=== PATIENT | male | born 1960 | race Caucasian/White ===

== ENCOUNTER 2020-02-16 22:42 | Emergency (ER) | payer BC ==
--- NOTE | 2020-02-16 23:20 | EDM.PDOC ---
ED HPI GENERAL MEDICAL PROBLEM - General Chief Complaint: Neuro Symptoms/Deficits Stated Complaint: STROKE Time Seen by Provider: 02/16/20 23:14 Source of Information: Reports: Patient History Limitations: Reports: No Limitations - History of Present Illness INITIAL COMMENTS - FREE TEXT/NARRATIVE: Ellis is a 59 yo male with numbness of the left side on and off x 3 weeks.He describes spells where he feels light headed,and clumsy. The left side feels heavy,and numb,and his left side of the face as well. He denies speech difficulty or swallowing problems. The last episode was tonight at 8 pm. He has a h/o high cholesterol,and DM,and tobacco abuse. No Headache, chest pain,or SOB - Related Data Allergies Allergy/AdvReac Type Severity Reaction Status Date / Time No Known Allergies Allergy Verified 02/16/20 22:47 ED ROS GENERAL - Review of Systems Review Of Systems: Comprehensive ROS is negative, except as noted in HPI. ED EXAM, NEURO - Physical Exam Exam: See Below Exam Limited By: No Limitations General Appearance: Alert, WD/WN, Anxious Ears: Normal External Exam Nose: Normal Inspection Throat/Mouth: Normal Inspection Head Exam: Atraumatic Neck: Normal Inspection Respiratory/Chest: No Respiratory Distress Cardiovascular: Normal Peripheral Pulses Neurological: Alert, Normal Mood/Affect, Normal Dorsiflexion, Oriented x 3 Extremities: Normal Inspection Psychiatric: Normal Affect #1 Interpretation EKG Date: 02/16/20 Rhythm: NSR Course - Vital Signs Last Recorded V/S: Last Vital Signs Temp 98.2 F 02/16/20 22:58 Pulse 86 02/16/20 22:58 Resp 16 02/16/20 22:58 BP 157/108 H 02/16/20 22:58 Pulse Ox 99 02/16/20 22:58 - Orders/Labs/Meds Orders: Active Orders 24 hr Category Date Time Status EKG Documentation Completion [RC] ASDIRECTED Care 02/16/20 23:07 Active Head wo Cont [CT] Stat Exams 02/16/20 22:48 Taken EKG 12 Lead [EK] Routine Ther 02/16/20 23:07 Ordered Labs: Laboratory Tests 02/16/20 02/16/20 02/16/20 Range/Units 23:15 23:15 23:15 WBC 9.3 (4.5-12.0) X10-3/uL RBC 4.86 (4.30-5.75) x10(6)uL Hgb 16.3 (13.5-17.8) g/dL Hct 47.5 (30.0-51.3) % MCV 97.9 H (80-96) fL MCH 33.5 (27.7-33.6) pg MCHC 34.3 (32.2-35.4) g/dL RDW 12.4 (11.5-15.5) % Plt Count 324 (125-369) X10(3)uL MPV 8.5 (7.4-10.4) fL Neut % (Auto) 58.7 (46-82) % Lymph % (Auto) 27.7 (13-37) % [place] % (Auto) 9.0 (4-12) % Eos % (Auto) 4 (1.0-5.0) % Baso % (Auto) 1 (0-2) % Neut # (Auto) 5.4 (1.6-8.3) # Lymph # (Auto) 2.6 (0.6-5.0) # [place] # (Auto) 0.8 (0.0-1.3) # Eos # (Auto) 0.4 (0.0-0.8) # Baso # (Auto) 0.1 (0.0-0.2) # Sodium 142 (135-145) mmol/L Potassium 3.8 (3.5-5.3) mmol/L Chloride 105 (100-110) mmol/L Carbon Dioxide 30 (21-32) mmol/L BUN 10 (7-18) mg/dL Creatinine 1.0 (0.70-1.30) mg/dL Est Cr Clr Drug Dosing 84.15 mL/min Estimated GFR (MDRD) > 60 (>60) BUN/Creatinine Ratio 10.0 (9-20) Glucose 128 H (80-116) mg/dL Calcium 8.5 L (8.6-10.2) mg/dL Troponin I 10.4 (4.0-60.3) pg/mL Departure - Departure Time of Disposition: 23:49 Disposition: Home, Self-Care 01 Condition: Good Clinical Impression: Dizziness - Discharge Information Referrals: Chirag Singleton MD [Primary Care Provider] - Forms: ED Department Discharge Sepsis Event Note (ED) - Evaluation Sepsis Screening Result: No Definite Risk - Focused Exam Vital Signs: Vital Signs Temp Pulse Resp BP Pulse Ox 02/16/20 22:58 98.2 F 86 16 157/108 H 99 - Problem List & Annotations (1) Dizziness SNOMED Code(s): 761908153, 981490143 Code(s): R42 - DIZZINESS AND GIDDINESS Status: Acute Current Visit: Yes (2) Numbness on left side SNOMED Code(s): 22421049 Code(s): R20.0 - ANESTHESIA OF SKIN Status: Acute Current Visit: Yes (3) HTN (hypertension) SNOMED Code(s): 93220955 Code(s): I10 - ESSENTIAL (PRIMARY) HYPERTENSION Status: Acute Current Visit: Yes (4) DM type 2 (diabetes mellitus, type 2) SNOMED Code(s): 88982434 Code(s): E11.9 - TYPE 2 DIABETES MELLITUS WITHOUT COMPLICATIONS Status: Acute Current Visit: Yes (5) Tobacco abuse SNOMED Code(s): 792006147 Code(s): Z72.0 - TOBACCO USE Status: Acute Current Visit: Yes - Problem List Review Problem List Initiated/Reviewed/Updated: Yes - My Orders Last 24 Hours: My Active Orders 02/16/20 22:48 Head wo Cont [CT] Stat 02/16/20 23:07 EKG Documentation Completion [RC] ASDIRECTED EKG 12 Lead [EK] Routine - Assessment/Plan Last 24 Hours: My Active Orders 02/16/20 22:48 Head wo Cont [CT] Stat 02/16/20 23:07 EKG Documentation Completion [RC] ASDIRECTED EKG 12 Lead [EK] Routine Plan: The CT was negative,done within 10 min. EKG was negative,as well. I have advised him to seek help from PCP,perhaps a ZIO patch or referral to neurology may help elucidate the etiology of his symptoms.
== END 2020-02-17 | disposition home or self-care (01) ==
LOC: FB.ED 22:42
DX: R42 Dizziness and giddiness (principal); R20.0 Anesthesia of skin; E11.9 Type 2 diabetes mellitus without complications
CPT/HCPCS: 36415; 70450; 80048; 84484; 85025; 93005; 93010; 99283; 99284-25

== ENCOUNTER 2024-09-20 18:58 | Emergency (ER) | payer BC ==
[2024-09-20] MEDS ORDERED: Acetaminophen/oxyCODONE 325-5 MG Tab PO ONE (18:59)
[2024-09-20] MEDS ORDERED: Ondansetron 4 MG Tab.DIS PO ONE (18:59)
[2024-09-20] MEDS: Sodium Chloride 0.9% 1,000 ML IV SCH ×2 (19:16→20:57)
[2024-09-20] MEDS: Ondansetron 4 MG/2 ML SDV IVPUSH ONE (19:17)
[2024-09-20] MEDS: HYDROmorphone 2 MG/ML SDV IVPUSH ONE (19:17)
[2024-09-20 19:18] LABS: BASOPHILS ABSOLUTE AUTO 0.1 x10-3/uL (0.0-0.3); BASOPHILS PERCENT AUTO 0.9 % (0.3-3.8); NEUTROPHILS PERCENT AUTO 71.8 % (40.3-71.8); PLATELET COUNT,PLT 410 x10(3)uL (117-477)
[2024-09-20 19:27] LABS: EOSINOPHILS PERCENT AUTO 0.3 % (0.1-6.8); HEMATOCRIT 39.7 % (38.3-50.1); HEMOGLOBIN 13.5 g/dL (12.9-17.7); LYMPHOCYTES ABSOLUTE AUTO 1.6 x10-3/uL (0.5-4.5); LYMPHOCYTES PERCENT AUTO 19.2 % (15.8-45.3); MEAN CORPUSCULAR HEMOGLOBIN 31.3 pg (27.0-33.3); MEAN CORPUSCULAR VOLUME 92.2 fL (80.8-98.7); MEAN PLATELET VOLUME 9.1 fL (6.7-11.0); MONOCYTES ABSOLUTE AUTO 0.6 x10-3/uL (0.0-1.2); MONOCYTES PERCENT AUTO 7.8 % (5.5-15.2); NEUTROPHILS ABSOLUTE AUTO 5.9 x10-3/uL (1.7-6.9); RED CELL DISTRIBUTION WIDTH 14.2 % (12.4-15.0); WHITE BLOOD CELL COUNT,WBC 8.3 x10-3/uL (3.2-10.1)
[2024-09-20 19:29] LABS: BLOOD UREA NITROGEN,BUN 9 mg/dL (7-18); CALCIUM 8.9 mg/dL (8.6-10.2); CARBON DIOXIDE,CO2 27 mmol/L (21-32); CHLORIDE,CL 105 mmol/L (100-110); CREATININE 0.9 mg/dL (0.70-1.30); ESTIMATED GFR 97 mL/min (>60); GLUCOSE RANDOM 99 mg/dL (80-116); POTASSIUM,K 3.5 mmol/L (3.5-5.3); SODIUM,NA 140 mmol/L (135-145)
[2024-09-20] MEDS: fentaNYL 100 MCG/2 ML SDV IVPUSH ONE (19:34)
[2024-09-20 19:40] LABS: A/G RATIO 0.5; ALANINE AMINOTRANSFERASE,ALT 42 U/L (12-36); ALBUMIN 2.5 g/dL (3.2-4.6); ALKALINE PHOSPHATASE 260 IU/L (56-112); ASPARTATE AMNIOTRANSFERASE,AST 77 IU/L (5-25); BILIRUBIN TOTAL 0.9 mg/dL (0.1-1.3); PROTEIN TOTAL,TP 7.5 g/dL (6.0-8.0)
[2024-09-20] MEDS: Iopamidol 755 Mg/ML 100 ML Bottle IV ONE (20:37)
== END 2024-09-20 22:03 | disposition home or self-care (01) ==
LOC: FB.ED 18:58
DX: C18.9 Malignant neoplasm of colon, unspecified (principal); R10.9 Unspecified abdominal pain; E11.9 Type 2 diabetes mellitus without complications; Z79.84 Long term (current) use of oral hypoglycemic drugs; Z79.899 Other long term (current) drug therapy
CPT/HCPCS: 36415; 71260; 74177; 80053; 83690; 85025; 96361; 96374; 96375; 99284; 99284-25; A9270-GY; J1171; J2405; J3010; J7030; Q0162; Q9967